=== PATIENT | female | born 1990 | race American Indian/Alaskan Native ===

== ENCOUNTER 2017-04-03 16:15 | Emergency (ER) | payer MEDICAID ==
[2017-04-03] MEDS ORDERED: TORADOL IM ONE (19:36)
[2017-04-03] MEDS ORDERED: ULTRAM PO ONE (19:43)
[2017-04-03] MEDS ORDERED: TRIMOX PO ONE (19:43)
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
[2017-04-03 20:08] VITALS: BP 143/92
== END 2017-04-03 20:10 | disposition home or self-care (01) ==
LOC: ED 16:15
DX: S01.511A Laceration without foreign body of lip, initial encounter (principal); S39.012A Strain of muscle, fascia and tendon of lower back, initial encounter; R51 Headache; I10 Essential (primary) hypertension; G43.909 Migraine, unspecified, not intractable, without status migrainosus; F17.200 Nicotine dependence, unspecified, uncomplicated; Y04.0XXA Assault by unarmed brawl or fight, initial encounter; Y93.89 Activity, other specified; Y92.89 Other specified places as the place of occurrence of the external cause; Y99.8 Other external cause status
CPT/HCPCS: 96372; 99282; J1885

== ENCOUNTER 2020-07-29 11:25 | Outpatient (CLI) | payer MEDICAID, OTHER ==
[2020-07-29] MEDS ORDERED: LACTATED RINGERS 1,000 ML IV SCH (12:45)
[2020-07-29 13:37] LABS: Bilirubin,Urine NEG (Negative); Blood,Urine NEG (Negative); Color,Urine Yellow (Yellow); Mucus,Urine FEW /HPF
[2020-07-29 14:14] VITALS: BP 134/73
== END 2020-07-29 14:30 | disposition home or self-care (01) ==
LOC: TRG 11:25 → APU 11:53 → TRG 14:30
PROVIDERS: ATTEND Obstetrics & Gynecology
DX: Z34.93 Encounter for supervision of normal pregnancy, unspecified, third trimester (principal); Z3A.33 33 weeks gestation of pregnancy
CPT/HCPCS: 36415; 81001; 84112